=== PATIENT | female | born 1970 | race Caucasian/White ===

== ENCOUNTER 2024-01-09 12:09 | Emergency (ER) | payer BC, OTHER ==
[2024-01-09 12:37] VITALS: TEMP 97.3
[2024-01-09 13:22] VITALS: O2SAT 94
[2024-01-09] MEDS ORDERED: Norflex 60 MG/2 ML ONE (13:36)
[2024-01-09] MEDS ORDERED: TORAdol 30 mg Injection ONE (13:36)
[2024-01-09] MEDS: TORAdol 30 mg Injection IM ONE (13:37)
[2024-01-09] MEDS: Norflex 60 MG/2 ML IM ONE (13:37)
--- NOTE | 2024-01-09 14:02 | XRAY ---
CLINICAL HISTORY: pain COMPARISON: None. TECHNIQUE: X-ray images of the lumbar spine were obtained in anteroposterior (AP), bilateral oblique, spot L5-S1 and lateral projections. FINDINGS: Alignment: Lumbar spine alignment is normal. Loss of lumbar lordosis suggestive of muscle spasm. No scoliosis. Vertebral Bodies: Vertebral bodies are of normal height and morphology. No evidence of fractures, compression deformities, or significant osseous lesions. Intervertebral Disc Spaces: L5-S1 disc space narrowing is noted. Multi-level osteophyte formation is noted. Facet arthropathy of L4-5 and L5-S1. The other intervertebral disc spaces are normal. Soft Tissues: Paraspinal soft tissues are of normal thickness. No evidence of paraspinal soft tissue swelling or mass effect. Additional Findings: The SIJs are preserved. Cholecystectomy surgical clips are seen. IMPRESSION: 1. Loss of lumbar lordosis suggestive of muscle spasm. 2. Degenerative changes are seen manifested by osteophyte formation, L5-S1 disc space narrowing and L4-5 and L5-S1 facet arthropathy. 3. No fractures or malalignment. A subtle bone abnormality or fracture may not be readily apparent on x-rays, thus clinical correlation and further imaging including follow up CT, MRI, or follow up x-rays are advised as needed. Electronically Signed by: Eduardo Alvarado MD. (01/09/2024 13:58:39 EDT)
--- NOTE | 2024-01-09 14:05 | ERPHSYRPT ---
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 I feel like I need an image taken or something. It kind of feels like something is hanging out of my vagina but I know it isnt." Triage Nursing Assessment: PT presented alert and oriented X 3, skin pwd. Pt ambulates with an upright steady gait, able to speak in clear full sentences.Pt resting comfortably on the bed. Physician History: 53-year-old female presented in the ER with complaint of low back pain moderate to severe sharp for almost 1 week with radiation to the right hip and knee area. Patient reports burning sensation on the right lateral hip. Pain is aggravated with movements. Patient reports she probably lifted something heavy last week and possibly injured his low back. Denies any loss of bowel or bladder control/saddle anesthesia. Is able to walk/weight-bear but hurts in the right lower back/hip area. No restricted range of motion of right hip. Has history of osteoarthritis with bilateral total knee arthroplasty. Denies any fall or direct trauma otherwise. Allergies/Adverse Reactions: No Known Drug Allergies Allergy (Unverified 12/02/11 17:27) Hx Tetanus, Diphtheria Vaccination/Date Given: No Hx Influenza Vaccination/Date Given: Yes (2012) Hx Pneumococcal Vaccination/Date Given: No Immunizations Up to Date: No Travel Risk - International Travel Have you traveled outside of the country in past 3 weeks: No - Emerging Infectious Disease Are you exhibiting symptoms associated with any current EIDs: No - Review of Systems Constitutional: No Symptoms Ears, Nose, & Throat: No Symptoms Respiratory: No Symptoms Cardiac: No Symptoms Abdominal/Gastrointestinal: No Symptoms Genitourinary Symptoms: No Symptoms Musculoskeletal: Arthralgias, Back Pain, Joint Pain Skin: No Symptoms Neurological: No Symptoms Endocrine: No Symptoms Hematologic/Lymphatic: No Symptoms - Past Medical History Pertinent Past Medical History: Yes Neurological History: No Pertinent History ENT History: No Pertinent History Cardiac History: No Pertinent History Respiratory History: No Pertinent History Endocrine Medical History: Hypothyroidism, Other Musculoskeletal History: Other GI Medical History: No Pertinent History History: No Pertinent History Psycho-Social History: Depression Female Reproductive Disorders: Other Other Medical History: LUPUS - Past Surgical History Past Surgical History: Yes Neuro Surgical History: No Pertinent History Cardiac: No Pertinent History Respiratory: No Pertinent History Gastrointestinal: Cholecystectomy Genitourinary: No Pertinent History Musculoskeletal: No Pertinent History Female Surgical History: Section Other Surgical History: biilat knee replacement - Female History Hx Last Menstrual Period: ablation Hx Now: No - Social History Smoking Status: Current every day smoker How long have you smoked: YRS Exposure to second hand smoke: Yes Drug Use: none Patient Lives Alone: No - Social Determinants of Health Will the patient participate in the screening: Yes Do you worry about a steady place to live?: No Do you have any problems with any of the following?: No known problems In the past 12 months,have you had to go without utilities?: No Transportation Issues: No Has anyone in your support network made you feel unsafe?: No Have you or anyone in your house had to go without enough: No - Nursing Vital Signs Nursing Vital Signs: Initial Vital Signs Temperature 97.3 F 01/09/24 12:30 Pulse Rate 118 H 01/09/24 12:30 Respiratory Rate 18 01/09/24 12:30 Blood Pressure 136/83 01/09/24 12:30 O2 Sat by Pulse Oximetry 97 01/09/24 12:30 Pain Scale Pain Intensity 2 - Physical Exam General Appearance: no apparent distress Eye Exam: PERRL/EOMI Neck Exam: normal inspection, full range of motion Respiratory Exam: normal breath sounds, lungs clear Cardiovascular Exam: normal heart sounds, tachycardia Gastrointestinal Exam: soft, normal bowel sounds, No tenderness Back Exam: normal inspection, normal range of motion, point tenderness (Right sacroiliac area) Extremity Exam: normal inspection, normal range of motion, pelvis stable Neurologic Exam: alert, oriented x 3, cooperative, claim clinician II-XII nml as tested, normal mood/affect, nml cerebellar function, nml station & gait, sensation nml, motor deficits Skin Exam: normal color SpO2 Interpretation: normal SpO2: 94 O2 Delivery: Room Air Ordered Tests: Active Orders 24 hr Category Date Time Status LUMBAR COMPLETE (MIN 4 VIEWS) Stat Exams 01/09/24 13:19 Completed Medication Summary Discontinued Medications Generic Name Dose Route Start Last Admin Trade Name Freq PRN Reason Stop Dose Admin Ketorolac Tromethamine 30 mg 01/09/24 13:19 01/09/24 13:37 Ketorolac Tromethamine 30 Mg/Ml Inj IM 01/09/24 13:20 30 mg STAT ONE Administration Ketorolac Tromethamine Confirm 01/09/24 13:36 Ketorolac Tromethamine 30 Mg/Ml Inj Administered 01/09/24 13:37 Dose 30 mg .ROUTE .STK-MED ONE Orphenadrine Citrate 60 mg 01/09/24 13:19 01/09/24 13:37 Orphenadrine Citrate 60 Mg/2 Ml Vial IM 01/09/24 13:20 60 mg STAT ONE Administration Orphenadrine Citrate Confirm 01/09/24 13:36 Orphenadrine Citrate 60 Mg/2 Ml Vial Administered 01/09/24 13:37 Dose 60 mg .ROUTE .STK-MED ONE - Progress Progress: pain not gone completely Progress Note: 01/09/24 15:16 53 years old is evaluated in the ER for low back pain with some radiation to the right hip and thigh area. Pain is reproducible with movements. Negative neuroexam in lower extremities. No saddle anesthesia. No loss of bowel or bladder control or any other cauda equina symptoms. Patient has no fall or trauma. Does have history of lifting heavy things. I believe patient has strained her back. I have obtained x-rays which are negative for fracture or subluxation, does have degenerative changes and muscle spasm. Patient is already taking muscle relaxants and will start diclofenac and outpatient follow- up.. Discussed signs symptoms of worsening needing return to ER which she seems understanding. Stable for discharge. 01/09/24 15:23 - Departure Departure Disposition: Home Clinical Impression: Low back strain, Hip strain Condition: Stable Critical Care Time: No Referrals: NICCI COMBS MD [Primary Care Provider] - Follow up with PCP 1 day Instructions: Back Muscle Strain Additional Instructions: Continue with your diclofenac and muscle relaxants. Follow-up with primary care for reevaluation. Return to ER for numbness tingling weakness of lower extremities, loss of bowel or bladder control/saddle anesthesia. Prescriptions: Cyclobenzaprine HCl 10 mg [Flexeril 10 MG] 10 mg PO TID #20 tablet Diclofenac Sodium 50 mg [Voltaren 50 mg] 50 mg PO TID PRN 10 Days #25 tablet PRN Reason: Pain
[2024-01-09 14:44] VITALS: BP 124/75; PULSE 88
[2024-01-09 15:10] VITALS: RESP 16
== END 2024-01-09 15:36 | disposition home or self-care (01) ==
LOC: ED 12:09
DX: S39.012A Strain of muscle, fascia and tendon of lower back, initial encounter (principal); M25.551 Pain in right hip; F17.200 Nicotine dependence, unspecified, uncomplicated
CPT/HCPCS: 72110; 96372; 99283; J1885; J2360